=== PATIENT | male | born 1995 | race Two or more races ===

== ENCOUNTER 2021-02-21 12:54 | Emergency (ER) | payer SELFPAY ==
[2021-02-21 13:15] VITALS: BP 149/79; PULSE 94; RESP 16; TEMP 36.6; O2SAT 100; BMI 36.6
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
[2021-02-21 14:36] LABS: MANUAL DIFF FLAG NO
[2021-02-21 14:39] LABS: Basophils Percent Auto 0.4 % (0-2); Eosinophils Absolute Auto 0.1 X10*3/uL (0.0-0.4); Eosinophils Percent Auto 1.2 % (0-4); Hematocrit 43.3 % (42.0-52.0); Hemoglobin 14.5 g/dl (14.0-18.0); Imm Gran Abs Auto 0.02 X10*3/uL (0.00-0.03); Imm Gran Pct Auto 0.3 % (0.0-0.4); Lymphocytes Percent Auto 29.1 % (20-40); Mean Corpuscular HGB Conc 33.5 g/dl (31.0-36.0); Mean Corpuscular Hemoglobin 28.2 pg (27.0-33.0); Mean Corpuscular Volume 84.1 fL (80.0-98.0); Mean Platelet Volume 9.6 fL (9.4-12.4); Monocytes Absolute Auto 0.6 X10*3/uL (0.1-1.2); Monocytes Percent Auto 9.3 % (2-11); Neutrophils Absolute Auto 4.1 x10*3/uL (2.0-8.3); Neutrophils Percent Auto 59.7 % (45-73); Platelet Count 296 X10*3/uL (160-400); Red Blood Count 5.15 X10*6/uL (4.60-5.80); Red Cell Distribution Width 13.3 % (11.0-16.0); White Blood Count 6.9 X10*3/uL (4.8-10.8)
[2021-02-21 14:54] LABS: Ethanol < 10 mg/dL
[2021-02-21 14:56] LABS: Anion Gap 10 (12-20); Blood Urea Nitrogen 12 mg/dL (9-16); Calcium 9.7 mg/dL (8.4-10.2); Carbon Dioxide 30 mmol/L (22-29); Chloride 105 mmol/L (96-108); Creatinine Clr Calc Pharmacy 105.7; Estimated Glomerular Filt Rate > 60; Glucose Random 131 mg/dL (60-115); Potassium 3.7 mmol/L (3.3-5.1); Sodium 141 mmol/L (135-145)
[2021-02-21 15:13] LABS: COVID-19 Test Negative (Negative); IDNOW Serial# 55D5AD1C
--- NOTE | 2021-02-21 15:14 | PC.NURSE ---
PT reports that he does not take medications, he reports that he stopped taking them several months ago and uses CBT as treatment instead of medications.
[2021-02-21 17:40] VITALS: BP 163/93; PULSE 83; RESP 15; TEMP 36.6; O2SAT 100
[2021-02-22 00:10] VITALS: RESP 20
[2021-02-22] MEDS: LORazepam 2 MG/ML VIAL IM (00:10)
[2021-02-22] MEDS: Haloperidol Lactate 5 MG/ML VIAL IM (00:10)
[2021-02-22] MEDS: diphenhydrAMINE HCL 50 MG/ML VIAL IM (00:10)
[2021-02-22 00:24] VITALS: BP 133/68; PULSE 76; RESP 17; TEMP 36.7; O2SAT 99
[2021-02-22 00:25] VITALS: RESP 18
[2021-02-22 00:40] VITALS: RESP 18
[2021-02-22 00:55] VITALS: RESP 18
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
[2021-02-22 01:10] VITALS: RESP 19
--- NOTE | 2021-02-22 06:08 | PC.NURSE ---
Patient is status post restraint, patient slept through the night, no distress observed/reported, patient is currently not on any medication, patient thought content is paranoid and delusional, behavior labile at time can aggressive, VSS, patient was seen by Randy, disposition is section 12 inpatient bed search, will continue to monitor.
--- NOTE | 2021-02-22 07:20 | PC.NURSE ---
patient appears to remain at rest at present respirations are even and unlabored, patient appears in no distress.
--- NOTE | 2021-02-22 18:32 | PC.NURSE ---
Patient aware of plan of care to utilize partial hospitalization. Verbalized understanding of discharge instruction discharged to waiting room to await ride
== END 2021-02-22 18:34 | disposition home or self-care (01) ==
PROVIDERS: Physician Assistant; Emergency Provider Emergency Medicine
DX: F30.9 Manic episode, unspecified (principal); Z20.822 Contact with and (suspected) exposure to COVID-19; F16.10 Hallucinogen abuse, uncomplicated; F12.10 Cannabis abuse, uncomplicated
CPT/HCPCS: 80048; 82077; 85025; 87635; 96372; 99285; J1200; J2060

== ENCOUNTER 2022-05-15 09:37 | Inpatient (IN) | payer BC, SELFPAY ==
[2022-05-15 09:52] VITALS: BP 186/89; PULSE 72; RESP 18; TEMP 37; O2SAT 98; BMI 29.6
[2022-05-15 10:22] LABS: MANUAL DIFF FLAG NO
[2022-05-15 10:27] LABS: Basophils Percent Auto 0.4 % (0-2); Eosinophils Percent Auto 0.2 % (0-4); Hemoglobin 14.7 g/dl (14.0-18.0); Imm Gran Abs Auto 0.02 X10*3/uL (0.00-0.03); Imm Gran Pct Auto 0.2 % (0.0-0.4); Lymphocytes Absolute Auto 2.1 X10*3/uL (1.2-4.9); Lymphocytes Percent Auto 25.4 % (20-40); Mean Corpuscular HGB Conc 34.2 g/dl (31.0-36.0); Mean Corpuscular Hemoglobin 27.8 pg (27.0-33.0); Mean Corpuscular Volume 81.4 fL (80.0-98.0); Monocytes Absolute Auto 0.5 X10*3/uL (0.1-1.2); Monocytes Percent Auto 6.5 % (2-11); Neutrophils Absolute Auto 5.6 x10*3/uL (2.0-8.3); Neutrophils Percent Auto 67.3 % (45-73); Platelet Count 309 X10*3/uL (160-400); Red Blood Count 5.28 X10*6/uL (4.60-5.80); Red Cell Distribution Width 13.8 % (11.0-16.0); White Blood Count 8.3 X10*3/uL (4.8-10.8)
--- NOTE | 2022-05-15 10:32 | PC.NURSE ---
Pt in to the pod from triage, changed over with Rishi WICK and security, belongings inventoried and locked up in locker #3. Labs ordered, drawn, and sent to lab, results pending. Pt presents with anxious affect, appears to be thought blocked. Endorsing paranoid thoughts pt feels as though he is in danger and that people are going to attack . Pt denies AH/VH/SI/HI, poor sleep. Lives at home with his parents. Per mom pt was psychiatrically hospitalized in Feb in [place] and d/c with meds. Mom states pt felt as though he did not need the medications, and took himself off his meds to do some watchful waiting . Awaiting first contact with ED provider at this time.
[2022-05-15 10:43] LABS: Ethanol < 10 mg/dL
[2022-05-15 10:49] LABS: COVID-19 Test Negative (Negative); IDNOW Serial# 08D9AD1C
[2022-05-15 10:52] LABS: Alanine Aminotransferase 62 U/L (0-40); Albumin Level 4.8 g/dL (3.5-5.0); Alkaline Phosphatase 62 U/L (39-117); Anion Gap 19 (12-20); Aspartate Amino Transferase 78 U/L (5-37); Bilirubin Total 1.3 mg/dL (0.0-1.0); Blood Urea Nitrogen 14 mg/dL (9-16); Calcium 9.5 mg/dL (8.4-10.2); Carbon Dioxide 21 mmol/L (22-29); Chloride 107 mmol/L (96-108); Creatinine Clr Calc Pharmacy 109.9; Estimated Glomerular Filt Rate > 60; Glucose Random 115 mg/dL (60-115); Potassium 4.1 mmol/L (3.3-5.1); Sodium 143 mmol/L (135-145); Total Protein 7.8 g/dL (6.5-8.0)
[2022-05-15 10:56] LABS: Acetaminophen LAB < 17 mcg/mL (<30); Salicylate < 5.0 mg/dL (15-30)
--- NOTE | 2022-05-15 13:31 | ED.PSYCH ---
HPI - Psych General Chief Complaint: Psychiatric Symptoms Stated Complaint: crisis Time Seen by Provider: 05/15/22 13:22 Source: patient History of Present Illness HPI Narrative: THIS IS A 26 YEARS OLD MALE WITH HISTORY OF BIPOLAR 1 DISORDER PRESENTED TO THE EMERGENCY DEPARTMENT BECAUSE THE COMPENSATING PARANOIDAL DELUSION. complaint: hallucinations Onset (ago): week(s) (2) Duration: constant History of same: Yes Relieving factors: none Exacerbating factors: none Associated psychiatric symptoms: none Related Data Allergies Allergy/AdvReac Type Severity Reaction Status Date / Time Unable to Assess Allergy Unverified 02/21/21 13:21 Review of Systems Constitutional: Constitutional: Reports no additional constitutional complaints Cardiovascular: Cardiovascular: Reports no additional cardiovascular complaints Respiratory: Respiratory: Reports no additional respiratory complaints Musculoskeletal: Musculoskeletal: Reports no additional musculoskeletal complaints [facility] Past Medical History Attestation statement: The following information was validated with the patient. [facility] Narrative: BIPOLAR 1 DISORDER HISTORY OF PSYCH HOSPITALIZATION Social History Social History Alcohol intake: former Patient Tobacco Use Status: Tobacco use Unknown Substance Use Type: Hallucinogens and Marijuana Advance Directives: No Advance Directives Information Provided: No Physical Exam Vital Signs: Vital Signs: Last Vital Signs Temp 98.6 F 05/15/22 09:52 Pulse 72 05/15/22 09:52 Resp 18 05/15/22 09:52 BP 186/89 H 05/15/22 09:52 Pulse Ox 98 05/15/22 09:52 O2 Del Method Room Air 05/15/22 09:52 BMI result Body Mass Index 29.6 Const: General: cooperative Nutritional Appearance: average body habitus Orientation/consciousness: patient oriented x3 HEENT: Head: Yes normal to inspection General nose exam: Normal external nose present Face and sinus: Yes normal facial exam Neck: Neck: Yes normal visual inspection Resp: Effort & Inspection: normal respiratory effort Cardio: Rate: regular rate GI: Inspection: Yes normal to inspection Skin: General skin exam: no rashes or lesions noted Rashes: no rashes Neuro: General: patient oriented x3 and CN's II-XI intact bilaterally Course Reevaluation(s) Reevaluation #1: bed search continue pt is inpatient level of care pt will be signed out to Dr Claire Time: 15:46 Medical Decision Making Medical Decision Making MDM Narrative: PATIENT PRESENTED WITH DECOMPENSATION OF BIPOLAR 1 DISORDER ANTICIPATE ADMISSION Differential Diagnosis Differential Diagnoses: The differential diagnosis associated with the presentation includes PSYCHOSIS/DEPRESSION/ANXIETY Lab Data [facility] Lab Attestation statement: I reviewed the patient's lab results. 05/15/22 10:17 05/15/22 10:17 Labs: Lab Results 05/15/22 05/15/22 05/15/22 Range/Units 10:17 10:17 10:17 WBC 8.3 (4.8-10.8) X10*3/uL RBC 5.28 (4.60-5.80) X10*6/uL Hgb 14.7 (14.0-18.0) g/dl Hct 43.0 (42.0-52.0) % MCV 81.4 (80.0-98.0) fL MCH 27.8 (27.0-33.0) pg MCHC 34.2 (31.0-36.0) g/dl RDW 13.8 (11.0-16.0) % Plt Count 309 (160-400) X10*3/uL MPV 10.0 (9.4-12.4) fL Immature Gran % (Auto) 0.2 (0.0-0.4) % Neut % (Auto) 67.3 (45-73) % Lymph % (Auto) 25.4 (20-40) % [place] % (Auto) 6.5 (2-11) % Eos % (Auto) 0.2 (0-4) % Baso % (Auto) 0.4 (0-2) % Lymph # (Auto) 2.1 (1.2-4.9) X10*3/uL [place] # (Auto) 0.5 (0.1-1.2) X10*3/uL Eos # (Auto) 0.0 (0.0-0.4) X10*3/uL Baso # (Auto) 0.0 (0.0-0.2) X10*3/uL Abs Immat Gran (auto) 0.02 (0.00-0.03) X10*3/uL Absolute Neuts (auto) 5.6 (2.0-8.3) x10*3/uL Absolute Nucleated RBC 0.000 (0.0-0.012) X10*3/uL Nucleated RBC % (auto) 0.0 (0.0-0.2) /100WBC Sodium 143 (135-145) mmol/L Potassium 4.1 (3.3-5.1) mmol/L Chloride 107 (96-108) mmol/L Carbon Dioxide 21 L (22-29) mmol/L Anion Gap 19 (12-20) BUN 14 (9-16) mg/dL Creatinine 1.11 (0.5-1.4) mg/dL Estim Creat Clear Calc 109.9 Estimated GFR > 60 Random Glucose 115 (60-115) mg/dL Calcium 9.5 (8.4-10.2) mg/dL Total Bilirubin 1.3 H (0.0-1.0) mg/dL AST 78 H (5-37) U/L ALT 62 H (0-40) U/L Alkaline Phosphatase 62 (39-117) U/L Total Protein 7.8 (6.5-8.0) g/dL Albumin 4.8 (3.5-5.0) g/dL Urine Color Urine Appearance Urine pH (5.0-9.0) Ur Specific [place] (1.005-1.025) Urine Protein (Neg-Trace) mg/dL Urine Glucose (UA) (Negative) mg/dL Urine Ketones (Negative) mg/dL Urine Blood (Negative) Urine Nitrite (Negative) Ur Leukocyte Esterase (Negative) Urine RBC (0-2) /HPF Urine WBC (0-5) /HPF Ur Squamous Epith Cells (0-2) /HPF Urine Bacteria (None Seen) Hyaline Casts (0-2) /LPF Salicylates < 5.0 L (15-30) mg/dL Urine Opiates Screen (Not Detect) Urine Fentanyl Screen (Not Detect) Acetaminophen < 17 (<30) mcg/mL Ur Barbiturates Screen (Not Detect) Ur Phencyclidine Scrn (Not Detect) Ur Amphetamines Screen (Not Detect) U Benzodiazepines Scrn (Not Detect) Urine Cocaine Screen (Not Detect) U Marijuana (THC) Screen (Not Detect) Ethyl Alcohol mg/dL COVID-19 (JUSTIN) Negative (Negative) COVID-19 Clin Com See Note 05/15/22 05/15/22 05/15/22 Range/Units 10:17 14:41 14:41 WBC (4.8-10.8) X10*3/uL RBC (4.60-5.80) X10*6/uL Hgb (14.0-18.0) g/dl Hct (42.0-52.0) % MCV (80.0-98.0) fL MCH (27.0-33.0) pg MCHC (31.0-36.0) g/dl RDW (11.0-16.0) % Plt Count (160-400) X10*3/uL MPV (9.4-12.4) fL Immature Gran % (Auto) (0.0-0.4) % Neut % (Auto) (45-73) % Lymph % (Auto) (20-40) % [place] % (Auto) (2-11) % Eos % (Auto) (0-4) % Baso % (Auto) (0-2) % Lymph # (Auto) (1.2-4.9) X10*3/uL [place] # (Auto) (0.1-1.2) X10*3/uL Eos # (Auto) (0.0-0.4) X10*3/uL Baso # (Auto) (0.0-0.2) X10*3/uL Abs Immat Gran (auto) (0.00-0.03) X10*3/uL Absolute Neuts (auto) (2.0-8.3) x10*3/uL Absolute Nucleated RBC (0.0-0.012) X10*3/uL Nucleated RBC % (auto) (0.0-0.2) /100WBC Sodium (135-145) mmol/L Potassium (3.3-5.1) mmol/L Chloride (96-108) mmol/L Carbon Dioxide (22-29) mmol/L Anion Gap (12-20) BUN (9-16) mg/dL Creatinine (0.5-1.4) mg/dL Estim Creat Clear Calc Estimated GFR Random Glucose (60-115) mg/dL Calcium (8.4-10.2) mg/dL Total Bilirubin (0.0-1.0) mg/dL AST (5-37) U/L ALT (0-40) U/L Alkaline Phosphatase (39-117) U/L Total Protein (6.5-8.0) g/dL Albumin (3.5-5.0) g/dL Urine Color Dark Yellow Urine Appearance Cloudy Urine pH 6.0 (5.0-9.0) Ur Specific [place] >= 1.030 H (1.005-1.025) Urine Protein 100 (2+) H (Neg-Trace) mg/dL Urine Glucose (UA) Negative (Negative) mg/dL Urine Ketones 15 (Negative) mg/dL Urine Blood Negative (Negative) Urine Nitrite Negative (Negative) Ur Leukocyte Esterase Negative (Negative) Urine RBC 0-2 (0-2) /HPF Urine WBC 0-5 (0-5) /HPF Ur Squamous Epith Cells 0-2 (0-2) /HPF Urine Bacteria None Seen (None Seen) Hyaline Casts 3-5 (0-2) /LPF Salicylates (15-30) mg/dL Urine Opiates Screen Not Detected (Not Detect) Urine Fentanyl Screen Not Detected (Not Detect) Acetaminophen (<30) mcg/mL Ur Barbiturates Screen Not Detected (Not Detect) Ur Phencyclidine Scrn Not Detected (Not Detect) Ur Amphetamines Screen Not Detected (Not Detect) U Benzodiazepines Scrn Not Detected (Not Detect) Urine Cocaine Screen Not Detected (Not Detect) U Marijuana (THC) Screen POSITIVE H (Not Detect) Ethyl Alcohol < 10 mg/dL COVID-19 (JUSTIN) (Negative) COVID-19 Clin Com Discharge Plan Discharge Clinical Impression: Bipolar disorder Patient Disposition: Still a Patient
[2022-05-15 14:56] LABS: Appearance Urine Cloudy; Color Urine Dark Yellow; Glucose Urine UA Negative (Negative); Leukocyte Esterase Urine Negative (Negative); Nitrite Urine Negative (Negative); Specific Gravity - Urine >= 1.030 (1.005-1.025); UMIC TRIGGER UACC YES; Urine Blood Negative (Negative); Urine Ketones 15 mg/dL (Negative); Urine Protein 100 (2+) mg/dL (Neg-Trace)
[2022-05-15 15:00] LABS: Amphetamine Screen Urine Not Detected (Not Detect); Barbiturates, Urine Not Detected (Not Detect); Benzodiazepines Screen Urine Not Detected (Not Detect); Cannabinoid Screen Urine POSITIVE (Not Detect); Cocaine Screen Urine Not Detected (Not Detect); Fentanyl, urine Not Detected (Not Detect); Opiate Screen Urine Not Detected (Not Detect); Phencyclidine Screen Urine Not Detected (Not Detect)
[2022-05-15 15:02] LABS: Bacteria Urine None Seen (None Seen); RBC Urine 0-2 /HPF (0-2); Squamous Epithelial Cell Urine 0-2 /HPF (0-2); WBC Urine 0-5 /HPF (0-5)
[2022-05-15 16:45] VITALS: BP 130/92; PULSE 67; RESP 18; TEMP 36.7; O2SAT 96
--- NOTE | 2022-05-15 19:35 | PHA.MEDREC ---
Pharmacy Consult ? Medication Reconciliation Pharmacy has completed the medication reconciliation. Reviewed med rec done by nursing
--- NOTE | 2022-05-15 22:19 | PC.ADMIT ---
Addendum entered by Yoly Robles RN 05/15/22 22:37: PT was changed to 5 minute safety checks due intrusiveness, going into other patients room, constantly being redirected. 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 Legal status: conditional voluntary. Pt was placed on 15 minute safety checks. PT self presented with their mother after having increased paranoid delusions that terrorists are trying to hurt him and fearing that people were hearing things he said. PT refused to participate in the admission process and quickly exited the treatment room, not even allowing vital signs to be taken. Per the assessment, pt quit his job approx 2 weeks ago and got terminated from a new job and then quickly decompensated. Mother reported pt has had similar presentations with hx of grandiose thoughts that they can cause the world to end. Per report, pt took a ton of acid in 2020 and moved to [place] and became homeless. On the way home, pt was receiving messages to go through restricted door in the airport. Pt was sectioned to [facility] in [place] for approx 4 weeks. Other hospitalizations include [facility] in 2019 and [facility] Feb 2021. PT's mother reported pt stopped taking medications in September of 2021 and his doctor has been watching and waiting for this decompensation. TOX screen + for marijuana, COVID negative. PT resting in room at this time, appears to be in no apparent distress.
[2022-05-16 08:38] VITALS: BP 140/98; PULSE 108; RESP 20; TEMP 36.2; O2SAT 96
[2022-05-16 08:39] LABS: Alanine Aminotransferase 78 U/L (0-40); Albumin Level 5.2 g/dL (3.5-5.0); Alkaline Phosphatase 69 U/L (39-117); Anion Gap 18 (12-20); Aspartate Amino Transferase 110 U/L (5-37); Bilirubin Total 1.4 mg/dL (0.0-1.0); Blood Urea Nitrogen 13 mg/dL (9-16); Calcium 10.2 mg/dL (8.4-10.2); Carbon Dioxide 25 mmol/L (22-29); Chloride 103 mmol/L (96-108); Cholesterol 219 mg/dL; Creatinine Clr Calc Pharmacy 91.7; Estimated Glomerular Filt Rate > 60; Glucose Fasting 118 mg/dL (60-99); HDL Cholesterol 31 mg/dL; LDL Cholesterol Calculated 167 mg/dl; Potassium 4.2 mmol/L (3.3-5.1); Sodium 142 mmol/L (135-145); Total Protein 8.4 g/dL (6.5-8.0); Triglycerides 106 mg/dL
[2022-05-16] MEDS: QUEtiapine Fumarate 300 MG TABLET PO (12:08)
[2022-05-16 16:27] VITALS: BP 119/81; PULSE 109; RESP 20; TEMP 36.3; O2SAT 97
--- NOTE | 2022-05-16 16:31 | HO.PSYADMNOT ---
HPI Date of Service: 05/16/22 Chief Complaint: Psychosis Sources of Information: patient interviewed, chart reviewed and crisis/core team assessment reviewed HPI Subjective Notes: Falcon Warning, Conditional Voluntary and Section 12B Narrative: Patient is a 26-year-old, on Section 12 b, (male at , non-binary person they/them pronouns) with history of bipolar disorder who presents in the midst of manic episode in face of non medication adherence. Patient was relatively stable for the past year even though not taking medications, holding down a job; about 2 weeks ago he quit his job showing signs of purging manic episode. Patient is now very disorganized, making odd movements in the milieu, intrusive, whispering to science writer, to himself, talking out loud to himself and answering questions posed by . Patient has limited ability to participate in interview. He asked for piece of paper and wrote that he is the Buddah and a witch... He refers to several pops star singers and his interaction with them... Patient said something about the popular book/movie ideasoft games and asked if the psychiatric unit was an arena. Rest of history gleaned from care team notes and chart Patient brought to ED by his mother who reports he has had increased paranoid delusions saying that terrorists are trying to hurt him and afraid of people; complains of auditory hallucinations and talking about being a participant in the [employer]. Past Psychiatric History: 2019 First treated for psychotic/manic symptoms 2020 manic episode January: abused psychedelics drugs and moved to [place] where he was psychiatrically admitted; returned to [place] and again psychiatrically admitted February 2021 Has outpatient psychiatrist however patient has not taking any medications for about a year, relatively stable, holding down a job until a couple weeks ago. -reference to Seroquel having been helpful Medical Evaluation Reviewed: Yes [facility], [facility] Family History: Unknown Adopted at 7-month-old (from [place]?) Social History: Adopted at 7-month-old; male at , non-binary person they/them pronouns Substance History: Hallucinogenic stop; cannabis Trauma History: Bullied Diagnostics Vital Signs (24Hr): Vital Signs - 24 hr 05/15/22 16:45 05/16/22 08:38 05/16/22 16:27 Temperature 98.0 F 97.1 F 97.4 F Pulse Rate 67 108 H 109 H Respiratory Rate 18 20 20 Blood Pressure 130/92 H 140/98 H 119/81 Pulse Oximetry 96 96 97 Oxygen Delivery Method Room Air Room Air Room Air BMI result Body Mass Index 29.6 Labs 05/15/22 10:17 05/16/22 08:00 Labs: Laboratory Results - last 48 hr 05/15/22 05/15/22 05/15/22 10:17 10:17 10:17 WBC 8.3 RBC 5.28 Hgb 14.7 Hct 43.0 MCV 81.4 MCH 27.8 MCHC 34.2 RDW 13.8 Plt Count 309 MPV 10.0 Immature Gran % (Auto) 0.2 Neut % (Auto) 67.3 Lymph % (Auto) 25.4 [place] % (Auto) 6.5 Eos % (Auto) 0.2 Baso % (Auto) 0.4 Lymph # (Auto) 2.1 [place] # (Auto) 0.5 Eos # (Auto) 0.0 Baso # (Auto) 0.0 Abs Immat Gran (auto) 0.02 Absolute Neuts (auto) 5.6 Absolute Nucleated RBC 0.000 Nucleated RBC % (auto) 0.0 Sodium 143 Potassium 4.1 Chloride 107 Carbon Dioxide 21 L Anion Gap 19 BUN 14 Creatinine 1.11 Estim Creat Clear Calc 109.9 Estimated GFR > 60 Random Glucose 115 Fasting Glucose Calcium 9.5 Total Bilirubin 1.3 H AST 78 H ALT 62 H Alkaline Phosphatase 62 Total Protein 7.8 Albumin 4.8 Triglycerides Cholesterol LDL Cholesterol, Calc HDL Cholesterol Urine Color Urine Appearance Urine pH Ur Specific [place] Urine Protein Urine Glucose (UA) Urine Ketones Urine Blood Urine Nitrite Ur Leukocyte Esterase Urine RBC Urine WBC Ur Squamous Epith Cells Urine Bacteria Hyaline Casts Salicylates < 5.0 L Urine Opiates Screen Urine Fentanyl Screen Acetaminophen < 17 Ur Barbiturates Screen Ur Phencyclidine Scrn Ur Amphetamines Screen U Benzodiazepines Scrn Urine Cocaine Screen U Marijuana (THC) Screen Ethyl Alcohol COVID-19 (JUSTIN) Negative COVID-19 Clin Com See Note 05/15/22 05/15/22 05/15/22 10:17 14:41 14:41 WBC RBC Hgb Hct MCV MCH MCHC RDW Plt Count MPV Immature Gran % (Auto) Neut % (Auto) Lymph % (Auto) [place] % (Auto) Eos % (Auto) Baso % (Auto) Lymph # (Auto) [place] # (Auto) Eos # (Auto) Baso # (Auto) Abs Immat Gran (auto) Absolute Neuts (auto) Absolute Nucleated RBC Nucleated RBC % (auto) Sodium Potassium Chloride Carbon Dioxide Anion Gap BUN Creatinine Estim Creat Clear Calc Estimated GFR Random Glucose Fasting Glucose Calcium Total Bilirubin AST ALT Alkaline Phosphatase Total Protein Albumin Triglycerides Cholesterol LDL Cholesterol, Calc HDL Cholesterol Urine Color Dark Yellow Urine Appearance Cloudy Urine pH 6.0 Ur Specific [place] >= 1.030 H Urine Protein 100 (2+) H Urine Glucose (UA) Negative Urine Ketones 15 Urine Blood Negative Urine Nitrite Negative Ur Leukocyte Esterase Negative Urine RBC 0-2 Urine WBC 0-5 Ur Squamous Epith Cells 0-2 Urine Bacteria None Seen Hyaline Casts 3-5 Salicylates Urine Opiates Screen Not Detected Urine Fentanyl Screen Not Detected Acetaminophen Ur Barbiturates Screen Not Detected Ur Phencyclidine Scrn Not Detected Ur Amphetamines Screen Not Detected U Benzodiazepines Scrn Not Detected Urine Cocaine Screen Not Detected U Marijuana (THC) Screen POSITIVE H Ethyl Alcohol < 10 COVID-19 (JUSTIN) COVID-19 Clin Com 05/16/22 08:00 WBC RBC Hgb Hct MCV MCH MCHC RDW Plt Count MPV Immature Gran % (Auto) Neut % (Auto) Lymph % (Auto) [place] % (Auto) Eos % (Auto) Baso % (Auto) Lymph # (Auto) [place] # (Auto) Eos # (Auto) Baso # (Auto) Abs Immat Gran (auto) Absolute Neuts (auto) Absolute Nucleated RBC Nucleated RBC % (auto) Sodium 142 Potassium 4.2 Chloride 103 Carbon Dioxide 25 Anion Gap 18 BUN 13 Creatinine 1.33 Estim Creat Clear Calc 91.7 Estimated GFR > 60 Random Glucose Fasting Glucose 118 H Calcium 10.2 D Total Bilirubin 1.4 H AST 110 H ALT 78 H Alkaline Phosphatase 69 Total Protein 8.4 H Albumin 5.2 H Triglycerides 106 Cholesterol 219 LDL Cholesterol, Calc 167 HDL Cholesterol 31 Urine Color Urine Appearance Urine pH Ur Specific [place] Urine Protein Urine Glucose (UA) Urine Ketones Urine Blood Urine Nitrite Ur Leukocyte Esterase Urine RBC Urine WBC Ur Squamous Epith Cells Urine Bacteria Hyaline Casts Salicylates Urine Opiates Screen Urine Fentanyl Screen Acetaminophen Ur Barbiturates Screen Ur Phencyclidine Scrn Ur Amphetamines Screen U Benzodiazepines Scrn Urine Cocaine Screen U Marijuana (THC) Screen Ethyl Alcohol COVID-19 (JUSTIN) COVID-19 Clin Com Meds/Allergies Meds Home Medications Medication Instructions Recorded Confirmed Type levothyroxine 25 mcg tablet 25 mcg PO QAM 05/15/22 05/15/22 History montelukast 10 mg tablet 10 mg PO DAILY 05/15/22 05/15/22 History Allergies Allergies Allergy/AdvReac Type Severity Reaction Status Date / Time No Known Allergies Allergy Verified 05/15/22 19:15 Mental Status Exam Mental Status Exam Narrative: Pt is alert and oriented; behavior is manic, disorganized making odd body and hand movements,, guarded. Patient is not in distress; dressed in hospital attire, with Nilsa markings on hands/arms, rings in lip, adequate hygiene; mood is described as expansive and affect is expansive; eye contact either staring or avoidant; speech is odd prosody, slightly rapid rate mostly talking to himself; psychomotor agitation present; thought process can be briefly goal oriented but quickly becomes disorganized; Thought content is on delusional, paranoid ideations; some grandiosity; denies any SI/HI. Patient is significantly internally preoccupied. Patients insight and judgment impaired Assessment & Plan Assessment & Plan (1) Bipolar disorder: Status: Acute Code(s): F31.9 - Bipolar disorder, unspecified Plan Patient is a 26-year-old, on Section 12 b, (male at , non-binary person they/them pronouns) with history of bipolar disorder who presents in the midst of manic episode in face of non medication adherence. Patient was relatively stable for the past year even though not taking medications, holding down a job; about 2 weeks ago he quit his job showing signs of purging manic episode. Patient is now very disorganized, making odd movements in the milieu, intrusive, whispering to science writer, to himself, talking out loud to himself and answering questions posed by . Patient has limited ability to participate in interview. He asked for piece of paper and wrote that he is the Buddah and a witch... He refers to several pops star singers and his interaction with them... Patient said something about the popular book/movie [employer] games and asked if the psychiatric unit was an arena. Rest of history gleaned from care team notes and chart. Patient brought to ED by his mother who reports he has had increased paranoid delusions saying that terrorists are trying to hurt him and afraid of people; complains of auditory hallucinations and talking about being a participant in the [employer]. -patient signed CV however CV was rejected as patient does not seem to understand the content of his CV, does not think he needs or wants treatment. -patient is floridly manic, with psychotic symptoms including paranoid and grandiose delusions and auditory hallucinations. Patient initially agreed to take Seroquel but then tried to spit it out and then tried to make himself vomit Plan: Section 12B (CV rejected) Q 5 minute checks; may advance to one-to-one if needed Seroquel 300 mg b.i.d. LFTs mildly elevated, not sure why; patient refuses Depakote anyway but have held off from starting it in hopes that patient may take Seroquel and that it will be effective -repeat liver panel Obtain collateral Patient educated on: diagnosis and medication risk/benefits Informed Consent: does not understand Reason for continued inpatient stay Substantial Risk for: inability to function Statement Statement: I have reviewed the history and physical and performed a pertinent examination on my patient. No changes have occurred unless specified. If the History and Physical was not performed prior to admission, the Hospitalist's service will be consulted for completing the admission physical. Time Spent With Patient Time: Total time managing care of this patient today ____ minutes.
[2022-05-16] MEDS: OLANZapine 10 MG VIAL IM (22:48)
[2022-05-16] MEDS: LORazepam 2 MG/ML VIAL IM (22:49)
--- NOTE | 2022-05-16 22:52 | PM.EVENT ---
Event Note Date of Service: 05/16/22 Event Note: pt became agitated, destructive, could not be redirected required physical and chemical restraint Time Spent With Patient Time: Total time managing care of this patient today ____ minutes.
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
[2022-05-17 08:58] VITALS: BP 133/87; PULSE 108; RESP 18
--- NOTE | 2022-05-17 09:51 | PC.NURSE ---
Attempt to medicate pt with scheduled seroquel by this RN. Pt appears agitated, argumentative when this nurse attempted to engage them in a conversation. Pt declining to take medication stating I don't take medications when reminded that they took their med yesterday I didn't know it was a medication . Pt appears hostile, intense eye contact. Continues to be a 1:1.
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
[2022-05-17 18:00] VITALS: RESP 16
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
[2022-05-18] MEDS: OLANZapine 10 MG VIAL IM ×2 (12:23→17:36)
[2022-05-18] MEDS: LORazepam 2 MG/ML VIAL 1 MG IM (12:23)
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
[2022-05-18 16:28] VITALS: RESP 16
[2022-05-18] MEDS: LORazepam 2 MG/ML VIAL IM (17:35)
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
--- NOTE | 2022-05-19 08:41 | PC.NURSE ---
pt refused am vitals or medications
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
[2022-05-19 18:00] VITALS: RESP 16
--- NOTE | 2022-05-19 20:08 | PC.NURSE ---
PT resistive to care, refused vital signs and evening medication. When offered meds pt stated I will only take acid .
[2022-05-20] MEDS: QUEtiapine Fumarate 50 MG TABLET PO ×2 (00:10→10:28)
[2022-05-20] MEDS: Levothyroxine Sodium 25 MCG TABLET PO (04:58)
[2022-05-20] MEDS: OLANZapine ODT 10 MG TAB.RAPDIS TRANSLINGU (10:27)
[2022-05-20] MEDS: Montelukast Sodium 10 MG TABLET PO (10:28)
[2022-05-20 11:26] LABS: Alanine Aminotransferase 80 U/L (0-40); Albumin Level 4.7 g/dL (3.5-5.0); Alkaline Phosphatase 69 U/L (39-117); Aspartate Amino Transferase 93 U/L (5-37); Bilirubin Direct 0.4 mg/dL (0.0-0.5); Bilirubin Total 1.6 mg/dL (0.0-1.0); Total Protein 7.5 g/dL (6.5-8.0)
--- NOTE | 2022-05-20 14:29 | PC.NURSE ---
pt denies being a current smoker and does not need or want NRT
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
[2022-05-21] MEDS: OLANZapine ODT 10 MG TAB.RAPDIS TRANSLINGU ×3 (08:17→20:48)
[2022-05-21] MEDS: Montelukast Sodium 10 MG TABLET PO (08:17)
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
[2022-05-21 11:54] VITALS: BP 121/58; PULSE 97; RESP 16; TEMP 36.3; O2SAT 97
[2022-05-21] MEDS: hydrOXYzine HCL 25 MG TABLET PO (13:52)
[2022-05-21 18:00] VITALS: PULSE 74; TEMP 36.1
[2022-05-21] MEDS: Divalproex Sodium ER 500 MG TAB.ER.24H PO (20:48)
[2022-05-22 07:00] VITALS: BMI 33.1
[2022-05-22] MEDS: OLANZapine ODT 10 MG TAB.RAPDIS TRANSLINGU ×3 (08:26→22:14)
[2022-05-22] MEDS: Montelukast Sodium 10 MG TABLET PO (08:26)
[2022-05-22] MEDS: Levothyroxine Sodium 25 MCG TABLET PO (08:27)
[2022-05-22 08:30] VITALS: BP 161/101; PULSE 85; RESP 18; TEMP 36.1; O2SAT 98
[2022-05-22 16:42] VITALS: BP 133/72; PULSE 90
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
[2022-05-22] MEDS: Divalproex Sodium ER 500 MG TAB.ER.24H PO (22:14)
[2022-05-23] MEDS: QUEtiapine Fumarate 50 MG TABLET PO (06:34)
[2022-05-23] MEDS: Levothyroxine Sodium 25 MCG TABLET PO (06:34)
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
[2022-05-23] MEDS: Montelukast Sodium 10 MG TABLET PO (08:45)
[2022-05-23] MEDS: OLANZapine ODT 10 MG TAB.RAPDIS TRANSLINGU ×2 (08:45→14:24)
[2022-05-23 08:56] LABS: Ammonia 20 umol/L (13-55)
[2022-05-23 09:12] LABS: Alanine Aminotransferase 69 U/L (0-40); Albumin Level 4.4 g/dL (3.5-5.0); Alkaline Phosphatase 59 U/L (39-117); Anion Gap 13 (12-20); Aspartate Amino Transferase 79 U/L (5-37); Bilirubin Direct 0.2 mg/dL (0.0-0.5); Bilirubin Total 0.8 mg/dL (0.0-1.0); Blood Urea Nitrogen 9 mg/dL (9-16); Calcium 9.6 mg/dL (8.4-10.2); Carbon Dioxide 29 mmol/L (22-29); Chloride 103 mmol/L (96-108); Creatinine Clr Calc Pharmacy 102.9; Estimated Glomerular Filt Rate > 60; Glucose Random 152 mg/dL (60-115); Potassium 4.3 mmol/L (3.3-5.1); Sodium 141 mmol/L (135-145)
[2022-05-23 18:00] VITALS: RESP 16
[2022-05-24 06:00] VITALS: BP 132/71; PULSE 81; RESP 16; TEMP 36.1; O2SAT 99
[2022-05-24] MEDS: OLANZapine ODT 10 MG TAB.RAPDIS TRANSLINGU ×3 (06:29→17:50)
[2022-05-24] MEDS: Montelukast Sodium 10 MG TABLET PO (08:15)
[2022-05-24] MEDS: Levothyroxine Sodium 25 MCG TABLET PO (08:16)
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
[2022-05-24 15:49] VITALS: BP 142/72; PULSE 91
[2022-05-24] MEDS: Divalproex Sodium ER 500 MG TAB.ER.24H 1000 MG PO (17:50)
[2022-05-24] MEDS: Ibuprofen 400 MG TABLET PO (20:16)
[2022-05-24] MEDS: QUEtiapine Fumarate 50 MG TABLET PO (20:18)
[2022-05-25] MEDS: hydrOXYzine HCL 25 MG TABLET PO ×2 (01:38→08:36)
[2022-05-25] MEDS: QUEtiapine Fumarate 50 MG TABLET PO ×2 (06:02→10:11)
[2022-05-25] MEDS: Levothyroxine Sodium 25 MCG TABLET PO (06:02)
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
[2022-05-25 08:31] VITALS: BP 106/56; PULSE 92; RESP 16; TEMP 37; O2SAT 96
[2022-05-25] MEDS: OLANZapine ODT 10 MG TAB.RAPDIS TRANSLINGU ×2 (08:36→17:35)
[2022-05-25] MEDS: Montelukast Sodium 10 MG TABLET PO (08:36)
[2022-05-25 16:11] VITALS: BP 127/78; PULSE 101
[2022-05-25] MEDS: Nicotine Polacrilex 2 MG GUM 4 MG BUCCAL (16:56)
[2022-05-25] MEDS: Divalproex Sodium ER 500 MG TAB.ER.24H 1000 MG PO (17:35)
[2022-05-26] MEDS: QUEtiapine Fumarate 50 MG TABLET PO ×2 (04:39→18:33)
[2022-05-26] MEDS: hydrOXYzine HCL 25 MG TABLET PO ×2 (04:39→11:20)
[2022-05-26] MEDS: Levothyroxine Sodium 25 MCG TABLET PO (04:40)
[2022-05-26] MEDS: Nicotine Polacrilex 2 MG GUM 4 MG BUCCAL ×2 (04:40→18:15)
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
[2022-05-26] MEDS: OLANZapine ODT 10 MG TAB.RAPDIS TRANSLINGU ×3 (08:22→18:33)
[2022-05-26] MEDS: Montelukast Sodium 10 MG TABLET PO (08:22)
[2022-05-26 08:29] VITALS: BP 116/79; PULSE 90; RESP 16; TEMP 36.1; O2SAT 99
[2022-05-26] MEDS: Throat Lozenge, Medicated LOZENGE 1 LOZENGE MUCOUS MEM ×2 (13:33→21:20)
[2022-05-26] MEDS: Divalproex Sodium ER 500 MG TAB.ER.24H 1000 MG PO (18:33)
[2022-05-26] MEDS: traZODone HCL 50 MG TABLET PO (21:20)
[2022-05-26] MEDS: Ibuprofen 400 MG TABLET PO (21:20)
[2022-05-27] MEDS: Throat Lozenge, Medicated LOZENGE 1 LOZENGE MUCOUS MEM ×2 (02:10→16:53)
[2022-05-27] MEDS: QUEtiapine Fumarate 50 MG TABLET PO (03:04)
[2022-05-27] MEDS: hydrOXYzine HCL 25 MG TABLET PO (03:04)
[2022-05-27] MEDS: OLANZapine ODT 10 MG TAB.RAPDIS TRANSLINGU (08:25)
[2022-05-27] MEDS: Levothyroxine Sodium 25 MCG TABLET PO (08:25)
[2022-05-27] MEDS: Montelukast Sodium 10 MG TABLET PO (08:26)
[2022-05-27 08:51] VITALS: BP 108/74; PULSE 94; RESP 14; TEMP 36.2; O2SAT 99
[2022-05-27] MEDS: Ibuprofen 400 MG TABLET PO (11:35)
[2022-05-27 12:03] LABS: Alanine Aminotransferase 63 U/L (0-40); Albumin Level 4.3 g/dL (3.5-5.0); Alkaline Phosphatase 56 U/L (39-117); Aspartate Amino Transferase 72 U/L (5-37); Bilirubin Direct 0.1 mg/dL (0.0-0.5); Bilirubin Total 0.5 mg/dL (0.0-1.0); Total Protein 6.8 g/dL (6.5-8.0)
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
[2022-05-27 12:38] LABS: Ammonia 46 umol/L (13-55)
[2022-05-27] MEDS: QUEtiapine Fumarate 200 MG TABLET PO ×2 (13:16→19:14)
[2022-05-27] MEDS: LORazepam 1 MG TABLET PO ×2 (14:38→19:14)
[2022-05-27 16:53] VITALS: BP 126/76; PULSE 68; RESP 16; TEMP 35.9; O2SAT 97
[2022-05-27] MEDS: Divalproex Sodium ER 500 MG TAB.ER.24H 1000 MG PO (19:14)
[2022-05-28] MEDS: Levothyroxine Sodium 25 MCG TABLET PO (05:22)
[2022-05-28] MEDS: Montelukast Sodium 10 MG TABLET PO (08:05)
[2022-05-28] MEDS: QUEtiapine Fumarate 200 MG TABLET PO ×3 (08:05→21:35)
[2022-05-28] MEDS: LORazepam 1 MG TABLET PO ×3 (08:05→21:35)
[2022-05-28] MEDS: Throat Lozenge, Medicated LOZENGE 1 LOZENGE MUCOUS MEM (13:38)
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
[2022-05-28 17:40] VITALS: BP 134/80; PULSE 85; TEMP 36.3
[2022-05-28] MEDS: Ibuprofen 400 MG TABLET PO (17:43)
[2022-05-28] MEDS: Divalproex Sodium ER 500 MG TAB.ER.24H 1000 MG PO (21:35)
[2022-05-29] MEDS: Throat Lozenge, Medicated LOZENGE 1 LOZENGE MUCOUS MEM (02:31)
[2022-05-29] MEDS: Levothyroxine Sodium 25 MCG TABLET PO (05:33)
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
[2022-05-29] MEDS: QUEtiapine Fumarate 200 MG TABLET PO (08:42)
[2022-05-29] MEDS: LORazepam 1 MG TABLET PO ×3 (08:42→18:31)
[2022-05-29] MEDS: Montelukast Sodium 10 MG TABLET PO (08:42)
[2022-05-29 09:09] VITALS: BP 129/75; PULSE 66; RESP 18; TEMP 36.1; O2SAT 100
[2022-05-29] MEDS: QUEtiapine Fumarate 300 MG TABLET 600 MG PO (18:31)
[2022-05-29] MEDS: Divalproex Sodium ER 500 MG TAB.ER.24H 1000 MG PO (18:32)
[2022-05-29] MEDS: QUEtiapine Fumarate 50 MG TABLET PO (20:03)
[2022-05-29] MEDS: Ibuprofen 400 MG TABLET PO (20:03)
[2022-05-30] MEDS: Levothyroxine Sodium 25 MCG TABLET PO (05:47)
[2022-05-30 06:00] VITALS: BP 106/53; PULSE 91; RESP 14; TEMP 37.1
[2022-05-30] MEDS: Montelukast Sodium 10 MG TABLET PO (07:56)
[2022-05-30] MEDS: LORazepam 1 MG TABLET PO ×3 (07:56→20:35)
[2022-05-30] MEDS: QUEtiapine Fumarate 200 MG TABLET PO (07:56)
[2022-05-30] MEDS: QUEtiapine Fumarate 50 MG TABLET PO (14:40)
[2022-05-30 18:00] VITALS: BP 122/84; PULSE 82; RESP 16; TEMP 36.6; O2SAT 98
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
[2022-05-30] MEDS: Divalproex Sodium ER 500 MG TAB.ER.24H 1000 MG PO (20:35)
[2022-05-30] MEDS: QUEtiapine Fumarate 300 MG TABLET 600 MG PO (20:35)
[2022-05-31] MEDS: Levothyroxine Sodium 25 MCG TABLET PO (06:28)
[2022-05-31] MEDS: QUEtiapine Fumarate 50 MG TABLET PO ×2 (06:32→17:36)
[2022-05-31] MEDS: LORazepam 1 MG TABLET PO ×3 (08:23→20:07)
[2022-05-31] MEDS: QUEtiapine Fumarate 200 MG TABLET PO (08:23)
[2022-05-31] MEDS: Montelukast Sodium 10 MG TABLET PO (08:23)
[2022-05-31 09:02] VITALS: BP 98/66; PULSE 88; RESP 16; TEMP 36.1; O2SAT 99
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
[2022-05-31] MEDS: Nicotine Polacrilex 2 MG GUM 4 MG BUCCAL (17:36)
[2022-05-31 18:00] VITALS: BP 111/72; PULSE 85; RESP 18; TEMP 35.9; O2SAT 98
[2022-05-31] MEDS: QUEtiapine Fumarate 300 MG TABLET 600 MG PO (20:07)
[2022-05-31] MEDS: Divalproex Sodium ER 500 MG TAB.ER.24H 1000 MG PO (20:07)
[2022-06-01] MEDS: Levothyroxine Sodium 25 MCG TABLET PO (05:30)
[2022-06-01] MEDS: QUEtiapine Fumarate 200 MG TABLET PO (09:04)
[2022-06-01] MEDS: LORazepam 1 MG TABLET PO ×2 (09:04→14:31)
[2022-06-01] MEDS: Montelukast Sodium 10 MG TABLET PO (09:04)
[2022-06-01 09:06] VITALS: BP 121/87; PULSE 81; RESP 16; TEMP 36.1; O2SAT 100
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
[2022-06-01 16:25] VITALS: BP 118/71; PULSE 93; TEMP 36; O2SAT 99
[2022-06-01] MEDS: Nicotine Polacrilex 2 MG GUM 4 MG BUCCAL (17:06)
[2022-06-01] MEDS: Divalproex Sodium ER 500 MG TAB.ER.24H 1000 MG PO (21:14)
[2022-06-01] MEDS: QUEtiapine Fumarate 300 MG TABLET 600 MG PO (21:15)
[2022-06-02 06:00] VITALS: BP 103/60; PULSE 89; RESP 14; TEMP 36.1; O2SAT 99
[2022-06-02] MEDS: Montelukast Sodium 10 MG TABLET PO (08:50)
[2022-06-02] MEDS: QUEtiapine Fumarate 200 MG TABLET PO (08:50)
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
[2022-06-02] MEDS: QUEtiapine Fumarate 50 MG TABLET PO (09:58)
[2022-06-02] MEDS: hydrOXYzine HCL 50 MG TABLET PO (16:25)
[2022-06-02] MEDS: QUEtiapine Fumarate 300 MG TABLET 600 MG PO (20:26)
[2022-06-03] MEDS: hydrOXYzine HCL 50 MG TABLET PO ×2 (02:30→14:17)
[2022-06-03] MEDS: Throat Lozenge, Medicated LOZENGE 1 LOZENGE MUCOUS MEM (02:30)
[2022-06-03] MEDS: Levothyroxine Sodium 25 MCG TABLET PO (05:55)
[2022-06-03] MEDS: Montelukast Sodium 10 MG TABLET PO (08:04)
[2022-06-03] MEDS: QUEtiapine Fumarate 200 MG TABLET PO (08:04)
[2022-06-03 08:06] VITALS: BP 117/72; PULSE 91; RESP 16; TEMP 35.9; O2SAT 100
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
[2022-06-03] MEDS: Nicotine Polacrilex 2 MG GUM 4 MG BUCCAL (18:38)
[2022-06-03 19:30] VITALS: BP 113/55; PULSE 104; TEMP 35.9
[2022-06-03] MEDS: QUEtiapine Fumarate 300 MG TABLET 600 MG PO (20:54)
[2022-06-04] MEDS: Levothyroxine Sodium 25 MCG TABLET PO (05:25)
[2022-06-04] MEDS: hydrOXYzine HCL 50 MG TABLET PO ×3 (05:28→21:21)
[2022-06-04] MEDS: Nicotine Polacrilex 2 MG GUM 4 MG BUCCAL ×5 (05:45→21:21)
[2022-06-04] MEDS: QUEtiapine Fumarate 200 MG TABLET PO (09:10)
[2022-06-04] MEDS: Montelukast Sodium 10 MG TABLET PO (09:10)
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
[2022-06-04 10:27] VITALS: BP 123/74; PULSE 121; RESP 18; TEMP 36.3; O2SAT 98
[2022-06-04 20:00] VITALS: BP 114/62; PULSE 106; TEMP 36.4
[2022-06-04] MEDS: QUEtiapine Fumarate 300 MG TABLET 600 MG PO (21:15)
[2022-06-05] MEDS: Levothyroxine Sodium 25 MCG TABLET PO (05:40)
[2022-06-05 09:10] VITALS: BP 124/83; PULSE 105; RESP 18; TEMP 36.7; O2SAT 96
[2022-06-05] MEDS: QUEtiapine Fumarate 200 MG TABLET PO (09:11)
[2022-06-05] MEDS: Montelukast Sodium 10 MG TABLET PO (09:11)
[2022-06-05] MEDS: Nicotine Polacrilex 2 MG GUM 4 MG BUCCAL ×2 (09:12→19:35)
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
[2022-06-05] MEDS: hydrOXYzine HCL 50 MG TABLET PO (13:17)
[2022-06-05] MEDS: QUEtiapine Fumarate 300 MG TABLET 600 MG PO (19:28)
[2022-06-05] MEDS: Divalproex Sodium ER 500 MG TAB.ER.24H 1000 MG PO (19:28)
[2022-06-05] MEDS: OLANZapine ODT 10 MG TAB.RAPDIS TRANSLINGU (19:36)
[2022-06-06] MEDS: QUEtiapine Fumarate 50 MG TABLET PO (04:57)
[2022-06-06] MEDS: Levothyroxine Sodium 25 MCG TABLET PO (04:58)
[2022-06-06 06:00] VITALS: RESP 14
[2022-06-06] MEDS: Nicotine Polacrilex 2 MG GUM 4 MG BUCCAL ×4 (06:29→15:49)
[2022-06-06] MEDS: QUEtiapine Fumarate 200 MG TABLET PO (09:39)
[2022-06-06] MEDS: Montelukast Sodium 10 MG TABLET PO (09:39)
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
[2022-06-06 18:00] VITALS: BP 128/67; PULSE 68; RESP 16; TEMP 36.6; O2SAT 97
[2022-06-06] MEDS: QUEtiapine Fumarate 300 MG TABLET 600 MG PO ×2 (20:54→21:11)
[2022-06-06] MEDS: LORazepam 1 MG TABLET 2 MG PO ×2 (20:55→21:11)
[2022-06-06] MEDS: Divalproex Sodium ER 500 MG TAB.ER.24H 1000 MG PO (21:11)
[2022-06-06] MEDS: OLANZapine 10 MG VIAL IM (21:22)
--- NOTE | 2022-06-06 21:54 | PC.NURSE ---
Pt refused bedtime depakote, 10mg zyprexa IM given per court order. Pt tolerated medication well.
[2022-06-07] MEDS: Levothyroxine Sodium 25 MCG TABLET PO (05:20)
[2022-06-07] MEDS: hydrOXYzine HCL 50 MG TABLET PO ×2 (05:23→20:34)
--- NOTE | 2022-06-07 05:26 | PC.NURSE ---
Patient compliant with levothyroxine this morning. Asks for seroquel or the yellow pill. States he has high anxiety but is hiding it well. No outward signs of agitation or anxiety. Atarax (yellow pill) administered as prescribed.
[2022-06-07] MEDS: Nicotine Polacrilex 2 MG GUM 4 MG BUCCAL ×4 (05:32→20:34)
[2022-06-07] MEDS: QUEtiapine Fumarate 200 MG TABLET PO (08:15)
[2022-06-07] MEDS: Montelukast Sodium 10 MG TABLET PO (08:15)
[2022-06-07 08:49] VITALS: BP 122/73; PULSE 99; RESP 18; TEMP 36.6; O2SAT 97
[2022-06-07 15:50] VITALS: BP 87/59; PULSE 98; TEMP 36.2
[2022-06-07] MEDS: LORazepam 1 MG TABLET 2 MG PO (20:34)
[2022-06-07] MEDS: Divalproex Sodium ER 500 MG TAB.ER.24H 1000 MG PO (20:36)
[2022-06-07] MEDS: QUEtiapine Fumarate 300 MG TABLET 600 MG PO (20:36)
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
--- NOTE | 2022-06-08 00:08 | PC.NURSE ---
Pt's mother, Yulia, called during shift after pt had made calls to her saying he was to be discharged tonight at 1830. Pt's mother was reassured pt was not leaving tonight. Pt's mother also expressed that she and her feel in the dark about pt's plan of care during his stay and about discharge planning for him, particularly as pt will likely return home with her and her and her . Pt's mother was hoping to set up a family meeting with providers about this. Yulia Still can be reached at .
[2022-06-08] MEDS: Levothyroxine Sodium 25 MCG TABLET PO (05:23)
[2022-06-08] MEDS: Nicotine Polacrilex 2 MG GUM 4 MG BUCCAL ×5 (06:31→22:43)
[2022-06-08] MEDS: hydrOXYzine HCL 50 MG TABLET PO ×3 (06:31→18:58)
[2022-06-08] MEDS: QUEtiapine Fumarate 200 MG TABLET PO (08:19)
[2022-06-08] MEDS: Montelukast Sodium 10 MG TABLET PO (08:19)
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
[2022-06-08 09:38] VITALS: BP 133/74; PULSE 100; RESP 18; TEMP 36.1; O2SAT 97
[2022-06-08] MEDS: QUEtiapine Fumarate 50 MG TABLET PO (12:36)
[2022-06-08] MEDS: Throat Lozenge, Medicated LOZENGE 1 LOZENGE MUCOUS MEM ×2 (15:55→19:45)
[2022-06-08] MEDS: Divalproex Sodium ER 500 MG TAB.ER.24H 1000 MG PO (22:36)
[2022-06-08] MEDS: QUEtiapine Fumarate 300 MG TABLET 600 MG PO (22:36)
[2022-06-08] MEDS: LORazepam 1 MG TABLET 2 MG PO (22:37)
[2022-06-09] MEDS: Levothyroxine Sodium 25 MCG TABLET PO (06:44)
[2022-06-09] MEDS: Montelukast Sodium 10 MG TABLET PO (07:56)
[2022-06-09] MEDS: QUEtiapine Fumarate 200 MG TABLET PO (07:56)
[2022-06-09 07:57] VITALS: BP 116/67; PULSE 103; RESP 16; TEMP 36.1; O2SAT 98
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
[2022-06-09] MEDS: Nicotine Polacrilex 2 MG GUM 4 MG BUCCAL ×3 (10:18→19:59)
[2022-06-09] MEDS: hydrOXYzine HCL 50 MG TABLET PO ×2 (10:18→15:53)
[2022-06-09] MEDS: QUEtiapine Fumarate 300 MG TABLET 600 MG PO (19:59)
[2022-06-09] MEDS: Divalproex Sodium ER 500 MG TAB.ER.24H 1000 MG PO (19:59)
[2022-06-09] MEDS: LORazepam 1 MG TABLET 2 MG PO (19:59)
[2022-06-10] MEDS: Levothyroxine Sodium 25 MCG TABLET PO (05:58)
[2022-06-10] MEDS: Montelukast Sodium 10 MG TABLET PO (07:54)
[2022-06-10] MEDS: QUEtiapine Fumarate 200 MG TABLET PO (07:54)
[2022-06-10 07:57] VITALS: BP 148/86; PULSE 101; RESP 16; TEMP 35.5; O2SAT 97
[2022-06-10] MEDS: hydrOXYzine HCL 50 MG TABLET PO ×2 (08:24→21:05)
[2022-06-10] MEDS: Nicotine Polacrilex 2 MG GUM 4 MG BUCCAL ×2 (09:55→13:34)
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
[2022-06-10] MEDS: LORazepam 0.5 MG TABLET PO (11:05)
[2022-06-10 18:00] VITALS: BP 127/75; PULSE 100; RESP 20; TEMP 536.2; TEMP 997.2; O2SAT 98
[2022-06-10] MEDS: QUEtiapine Fumarate 300 MG TABLET 600 MG PO (21:05)
[2022-06-10] MEDS: Divalproex Sodium ER 500 MG TAB.ER.24H 1000 MG PO (21:05)
[2022-06-10] MEDS: LORazepam 1 MG TABLET 2 MG PO (21:05)
[2022-06-11] MEDS: hydrOXYzine HCL 50 MG TABLET PO ×2 (03:40→10:01)
[2022-06-11] MEDS: Nicotine Polacrilex 2 MG GUM 4 MG BUCCAL ×3 (03:40→15:06)
[2022-06-11] MEDS: LORazepam 0.5 MG TABLET PO (08:27)
[2022-06-11] MEDS: Montelukast Sodium 10 MG TABLET PO (08:27)
[2022-06-11] MEDS: Levothyroxine Sodium 25 MCG TABLET PO (08:27)
[2022-06-11 08:31] VITALS: BP 122/78; PULSE 102; RESP 16; TEMP 36.6; O2SAT 100
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
[2022-06-11] MEDS: QUEtiapine Fumarate 50 MG TABLET PO (12:01)
[2022-06-11 12:56] LABS: Alanine Aminotransferase 54 U/L (0-40); Albumin Level 4.4 g/dL (3.5-5.0); Alkaline Phosphatase 54 U/L (39-117); Aspartate Amino Transferase 50 U/L (5-37); Bilirubin Direct 0.1 mg/dL (0.0-0.5); Bilirubin Total 0.3 mg/dL (0.0-1.0); Total Protein 7.1 g/dL (6.5-8.0)
[2022-06-11 13:11] LABS: HIV AB/AG Nonreactive (Nonreactive); HIV Num 1 0.27 S/CO (0.00-0.99); TSH reflex Free T4 2.06 uIU/mL (0.32-4.0)
[2022-06-11 13:12] LABS: Syphilis Screen Nonreactive (Nonreactive)
[2022-06-11 15:16] LABS: CT PCR NOT DETECTED (Not Detect.); NG PCR NOT DETECTED (Not Detect.)
[2022-06-11 18:00] VITALS: BP 147/69; PULSE 88; RESP 18; TEMP 36.8; O2SAT 99
[2022-06-11] MEDS: QUEtiapine Fumarate 300 MG TABLET 600 MG PO (20:12)
[2022-06-11] MEDS: Divalproex Sodium ER 500 MG TAB.ER.24H 1000 MG PO (20:12)
[2022-06-11] MEDS: LORazepam 1 MG TABLET PO (20:13)
--- NOTE | 2022-06-11 21:12 | PC.NURSE ---
Pt's mother called this evening and spoke with TW. She expressed concern that Dr. Loza had told her today that he was intending to start patient on Lemay. When I viewed the MAR, it was noted that the medication was scheduled to start this evening. She expressed that even without Lemay she had noticed that Still seemed clearer this evening when she visited earlier.
[2022-06-12] MEDS: Levothyroxine Sodium 25 MCG TABLET PO (04:38)
[2022-06-12] MEDS: Nicotine Polacrilex 2 MG GUM 4 MG BUCCAL ×3 (04:38→21:46)
[2022-06-12 08:19] VITALS: BP 130/76; PULSE 78; RESP 16; TEMP 36.2; O2SAT 99
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
[2022-06-12] MEDS: Lithium Carbonate ER 300 MG TABLET.ER PO ×2 (11:48→21:04)
--- NOTE | 2022-06-12 11:49 | PC.NURSE ---
attempted to administer once lithium dose. pt threw med and cup of water. pt accepted med from different nurse.
[2022-06-12 16:50] VITALS: BP 109/71; PULSE 94; TEMP 36.2
[2022-06-12] MEDS: LORazepam 1 MG TABLET PO (21:03)
[2022-06-12] MEDS: QUEtiapine Fumarate 300 MG TABLET 600 MG PO (21:03)
[2022-06-12] MEDS: Divalproex Sodium ER 500 MG TAB.ER.24H 1000 MG PO (21:04)
[2022-06-12] MEDS: hydrOXYzine HCL 50 MG TABLET PO (22:57)
[2022-06-13] MEDS: Levothyroxine Sodium 25 MCG TABLET PO (05:30)
[2022-06-13 09:13] VITALS: BP 127/89; PULSE 90; RESP 16; TEMP 36.7; O2SAT 98
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
[2022-06-13] MEDS: Divalproex Sodium ER 500 MG TAB.ER.24H 1000 MG PO (20:27)
[2022-06-13] MEDS: LORazepam 1 MG TABLET PO (20:27)
[2022-06-13] MEDS: QUEtiapine Fumarate 300 MG TABLET 600 MG PO (20:27)
[2022-06-13] MEDS: Lithium Carbonate ER 300 MG TABLET.ER 600 MG PO (20:28)
[2022-06-13] MEDS: Nicotine Polacrilex 2 MG GUM 4 MG BUCCAL (20:31)
[2022-06-14] MEDS: Levothyroxine Sodium 25 MCG TABLET PO (06:48)
[2022-06-14] MEDS: Nicotine Polacrilex 2 MG GUM 4 MG BUCCAL ×2 (07:52→11:38)
[2022-06-14] MEDS: hydrOXYzine HCL 50 MG TABLET PO (07:52)
[2022-06-14 08:37] VITALS: BP 145/70; PULSE 85; RESP 16; TEMP 36.5; O2SAT 98
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
[2022-06-14] MEDS: LORazepam 0.5 MG TABLET PO (10:41)
[2022-06-14 18:46] VITALS: BP 128/78; PULSE 88; RESP 16; TEMP 36.6; O2SAT 99
[2022-06-14] MEDS: QUEtiapine Fumarate 400 MG TABLET 800 MG PO (20:26)
[2022-06-14] MEDS: Divalproex Sodium ER 500 MG TAB.ER.24H 1000 MG PO (20:27)
[2022-06-14] MEDS: Lithium Carbonate ER 300 MG TABLET.ER 600 MG PO (20:27)
[2022-06-14] MEDS: LORazepam 1 MG TABLET PO (20:28)
[2022-06-15] MEDS: hydrOXYzine HCL 50 MG TABLET PO ×2 (08:08→22:13)
[2022-06-15] MEDS: Levothyroxine Sodium 25 MCG TABLET PO (08:08)
[2022-06-15 08:11] VITALS: BP 131/83; PULSE 76; RESP 16; TEMP 36.1; O2SAT 100
[2022-06-15] MEDS: Nicotine Polacrilex 2 MG GUM 4 MG BUCCAL ×3 (09:29→17:31)
[2022-06-15] MEDS: LORazepam 0.5 MG TABLET PO ×2 (09:30→17:29)
--- NOTE | 2022-06-15 10:22 | PC.NURSE ---
Pt stated that he put an orange in the toilet and proceeded to have a bowel movement on top of it. Toilet was plunged and no fruit found. Pt bathroom was locked.
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
[2022-06-15] MEDS: OLANZapine 5 MG TABLET PO (17:33)
[2022-06-15 18:00] VITALS: BP 134/99; PULSE 113; RESP 18; TEMP 36.6; O2SAT 98
[2022-06-15] MEDS: QUEtiapine Fumarate 400 MG TABLET 800 MG PO (22:12)
[2022-06-15] MEDS: Lithium Carbonate ER 300 MG TABLET.ER 600 MG PO (22:12)
[2022-06-15] MEDS: Divalproex Sodium ER 500 MG TAB.ER.24H 1000 MG PO (22:12)
[2022-06-15] MEDS: LORazepam 1 MG TABLET PO (22:12)
[2022-06-16] MEDS: Levothyroxine Sodium 25 MCG TABLET PO (06:24)
[2022-06-16 08:27] VITALS: BP 127/81; PULSE 105; RESP 18; TEMP 36.1; O2SAT 98
[2022-06-16] MEDS: LORazepam 0.5 MG TABLET PO (09:40)
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
[2022-06-16] MEDS: hydrOXYzine HCL 50 MG TABLET PO (11:54)
[2022-06-16] MEDS: Nicotine Polacrilex 2 MG GUM 4 MG BUCCAL ×2 (11:54→16:57)
[2022-06-16 18:00] VITALS: BP 156/94; PULSE 107; TEMP 36.8; O2SAT 95
[2022-06-16] MEDS: Throat Lozenge, Medicated LOZENGE 1 LOZENGE MUCOUS MEM (18:39)
[2022-06-16] MEDS: OLANZapine 5 MG TABLET PO (18:41)
[2022-06-16] MEDS: LORazepam 1 MG TABLET PO (22:23)
[2022-06-16] MEDS: Divalproex Sodium ER 500 MG TAB.ER.24H 1000 MG PO (22:23)
[2022-06-16] MEDS: Lithium Carbonate ER 300 MG TABLET.ER 600 MG PO (22:24)
[2022-06-16] MEDS: QUEtiapine Fumarate 400 MG TABLET 800 MG PO (22:24)
[2022-06-17] MEDS: Levothyroxine Sodium 25 MCG TABLET PO (06:11)
[2022-06-17 08:37] VITALS: BP 142/90; PULSE 78; RESP 16; TEMP 36.7; O2SAT 100
[2022-06-17] MEDS: Nicotine Polacrilex 2 MG GUM 4 MG BUCCAL ×4 (09:29→19:27)
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
[2022-06-17 11:13] LABS: Lithium 0.87 mmol/L (0.60-1.20)
[2022-06-17 12:20] LABS: Blood Urea Nitrogen 12 mg/dL (9-16); Creatinine Clr Calc Pharmacy 107.2; Estimated Glomerular Filt Rate > 60
[2022-06-17 13:21] LABS: Free T4 (Free Thyroxine) 1.07 ng/dL (0.71-1.85)
[2022-06-17] MEDS: LORazepam 0.5 MG TABLET PO (15:01)
[2022-06-17 16:10] VITALS: BP 114/68; PULSE 105; TEMP 35.8
[2022-06-17] MEDS: Divalproex Sodium ER 500 MG TAB.ER.24H 1000 MG PO (19:27)
[2022-06-17] MEDS: Lithium Carbonate ER 300 MG TABLET.ER 600 MG PO (19:28)
[2022-06-17] MEDS: LORazepam 1 MG TABLET PO (19:28)
[2022-06-17] MEDS: QUEtiapine Fumarate 400 MG TABLET 800 MG PO (19:28)
[2022-06-18] MEDS: Levothyroxine Sodium 25 MCG TABLET PO (06:08)
[2022-06-18] MEDS: LORazepam 0.5 MG TABLET PO ×2 (08:09→14:14)
[2022-06-18 08:30] VITALS: BP 111/69; PULSE 100; RESP 16; TEMP 36.1; O2SAT 96
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
[2022-06-18] MEDS: HaloperidoL 5 MG TABLET PO ×2 (10:56→20:44)
[2022-06-18] MEDS: Nicotine Polacrilex 2 MG GUM 4 MG BUCCAL ×2 (10:56→14:15)
[2022-06-18 19:09] VITALS: BP 124/83; PULSE 90; RESP 18; TEMP 36.1; O2SAT 98
[2022-06-18] MEDS: Divalproex Sodium ER 500 MG TAB.ER.24H 1000 MG PO (20:44)
[2022-06-18] MEDS: QUEtiapine Fumarate 400 MG TABLET 800 MG PO (20:44)
[2022-06-18] MEDS: Lithium Carbonate ER 300 MG TABLET.ER 600 MG PO (20:45)
[2022-06-18] MEDS: LORazepam 1 MG TABLET PO (20:47)
[2022-06-19] MEDS: Throat Lozenge, Medicated LOZENGE 1 LOZENGE MUCOUS MEM ×2 (03:58→11:14)
[2022-06-19] MEDS: Levothyroxine Sodium 25 MCG TABLET PO (06:13)
[2022-06-19] MEDS: Nicotine Polacrilex 2 MG GUM 4 MG BUCCAL ×2 (06:58→13:49)
[2022-06-19] MEDS: hydrOXYzine HCL 50 MG TABLET PO (06:58)
[2022-06-19] MEDS: HaloperidoL 5 MG TABLET PO ×2 (08:13→21:08)
[2022-06-19 08:20] VITALS: BP 126/91; PULSE 81; RESP 18; TEMP 36.2; O2SAT 99
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
[2022-06-19 12:38] VITALS: BMI 33.1
[2022-06-19 16:49] VITALS: BP 113/62; PULSE 89; RESP 18; TEMP 36.1; O2SAT 100
[2022-06-19] MEDS: Divalproex Sodium ER 500 MG TAB.ER.24H 1000 MG PO (21:07)
[2022-06-19] MEDS: QUEtiapine Fumarate 400 MG TABLET 800 MG PO (21:08)
[2022-06-19] MEDS: Lithium Carbonate ER 300 MG TABLET.ER 600 MG PO (21:08)
[2022-06-19] MEDS: LORazepam 1 MG TABLET PO (21:08)
[2022-06-20 06:00] VITALS: BP 126/70; PULSE 92; RESP 16; TEMP 36.6; O2SAT 100
[2022-06-20] MEDS: Levothyroxine Sodium 25 MCG TABLET PO (06:26)
[2022-06-20] MEDS: Throat Lozenge, Medicated LOZENGE 1 LOZENGE MUCOUS MEM (06:27)
[2022-06-20] MEDS: HaloperidoL 5 MG TABLET PO ×2 (10:15→17:57)
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
[2022-06-20] MEDS: QUEtiapine Fumarate 400 MG TABLET 800 MG PO (17:56)
[2022-06-20] MEDS: Divalproex Sodium ER 500 MG TAB.ER.24H 1000 MG PO (17:57)
[2022-06-20] MEDS: Lithium Carbonate ER 300 MG TABLET.ER 600 MG PO (17:57)
[2022-06-20] MEDS: LORazepam 1 MG TABLET PO (17:57)
[2022-06-20 18:00] VITALS: BP 128/68; PULSE 78; RESP 16; TEMP 36.4; O2SAT 98
[2022-06-21] MEDS: Levothyroxine Sodium 25 MCG TABLET PO (05:57)
[2022-06-21] MEDS: Nicotine Polacrilex 2 MG GUM 4 MG BUCCAL ×3 (05:59→20:00)
[2022-06-21] MEDS: HaloperidoL 5 MG TABLET PO ×2 (08:14→22:04)
[2022-06-21 08:17] VITALS: BP 126/65; PULSE 78; RESP 18; TEMP 36.3; O2SAT 99
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
[2022-06-21] MEDS: Throat Lozenge, Medicated LOZENGE 1 LOZENGE MUCOUS MEM (19:59)
[2022-06-21 20:00] VITALS: BP 116/65; PULSE 98; TEMP 36.6
[2022-06-21] MEDS: Lithium Carbonate ER 300 MG TABLET.ER 600 MG PO (22:03)
[2022-06-21] MEDS: Divalproex Sodium ER 500 MG TAB.ER.24H 1000 MG PO (22:03)
[2022-06-21] MEDS: QUEtiapine Fumarate 400 MG TABLET 800 MG PO (22:04)
[2022-06-21] MEDS: LORazepam 1 MG TABLET PO (22:04)
[2022-06-22] MEDS: Levothyroxine Sodium 25 MCG TABLET PO (06:20)
[2022-06-22 08:28] VITALS: BP 107/67; PULSE 88; RESP 16; TEMP 36.8; O2SAT 99
[2022-06-22] MEDS: HaloperidoL 5 MG TABLET PO ×2 (08:30→22:06)
[2022-06-22] MEDS: hydrOXYzine HCL 50 MG TABLET PO (08:35)
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
[2022-06-22 18:05] VITALS: BP 105/57; PULSE 103; TEMP 36.2
[2022-06-22] MEDS: Divalproex Sodium ER 500 MG TAB.ER.24H 1000 MG PO (22:07)
[2022-06-22] MEDS: QUEtiapine Fumarate 400 MG TABLET 800 MG PO (22:07)
[2022-06-22] MEDS: LORazepam 1 MG TABLET PO (22:08)
[2022-06-22] MEDS: Lithium Carbonate ER 300 MG TABLET.ER 600 MG PO (22:08)
[2022-06-23] MEDS: Levothyroxine Sodium 25 MCG TABLET PO (05:58)
[2022-06-23 06:00] VITALS: BP 112/61; PULSE 76; RESP 18; TEMP 36.2; O2SAT 97
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
[2022-06-23] MEDS: HaloperidoL 5 MG TABLET PO ×2 (11:33→20:49)
[2022-06-23 18:00] VITALS: BP 111/63; PULSE 83; TEMP 36.2
[2022-06-23] MEDS: Nicotine Polacrilex 2 MG GUM 4 MG BUCCAL (18:15)
[2022-06-23] MEDS: hydrOXYzine HCL 50 MG TABLET PO (18:16)
[2022-06-23] MEDS: QUEtiapine Fumarate 400 MG TABLET 800 MG PO (20:48)
[2022-06-23] MEDS: Divalproex Sodium ER 250 MG TAB.ER.24H 750 MG PO (20:49)
[2022-06-23] MEDS: LORazepam 1 MG TABLET PO (20:49)
[2022-06-23] MEDS: Lithium Carbonate ER 300 MG TABLET.ER 600 MG PO (20:50)
[2022-06-24] MEDS: Levothyroxine Sodium 25 MCG TABLET PO (06:34)
[2022-06-24 08:47] VITALS: BP 118/77; PULSE 90; RESP 18; TEMP 36.6; O2SAT 97
[2022-06-24] MEDS: HaloperidoL 5 MG TABLET PO ×2 (08:49→21:08)
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
[2022-06-24] MEDS: Nicotine Polacrilex 2 MG GUM 4 MG BUCCAL (14:22)
[2022-06-24 18:00] VITALS: BP 114/84; PULSE 84; RESP 18; TEMP 36.4; O2SAT 99
[2022-06-24] MEDS: Lithium Carbonate ER 300 MG TABLET.ER 600 MG PO (21:08)
[2022-06-24] MEDS: QUEtiapine Fumarate 400 MG TABLET 800 MG PO (21:09)
[2022-06-24] MEDS: Divalproex Sodium ER 500 MG TAB.ER.24H PO (21:09)
[2022-06-24] MEDS: hydrOXYzine HCL 50 MG TABLET PO (21:09)
[2022-06-24] MEDS: LORazepam 1 MG TABLET PO (21:09)
[2022-06-25] MEDS: Levothyroxine Sodium 25 MCG TABLET PO (06:13)
[2022-06-25] MEDS: HaloperidoL 5 MG TABLET PO ×2 (09:30→21:35)
[2022-06-25 09:38] VITALS: BP 112/64; PULSE 90; RESP 16; TEMP 36.4; O2SAT 98
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
[2022-06-25 21:00] VITALS: BP 106/58; PULSE 94; TEMP 37
[2022-06-25] MEDS: QUEtiapine Fumarate 400 MG TABLET 800 MG PO (21:34)
[2022-06-25] MEDS: Divalproex Sodium ER 500 MG TAB.ER.24H PO (21:35)
[2022-06-25] MEDS: Lithium Carbonate ER 300 MG TABLET.ER 600 MG PO (21:35)
[2022-06-26 06:00] VITALS: BP 114/73; PULSE 97; RESP 16; TEMP 36.6; O2SAT 98
[2022-06-26] MEDS: Levothyroxine Sodium 25 MCG TABLET PO (06:24)
[2022-06-26 07:00] VITALS: BMI 34.2
[2022-06-26] MEDS: HaloperidoL 5 MG TABLET PO ×2 (08:23→20:38)
[2022-06-26] MEDS: Nicotine Polacrilex 2 MG GUM 4 MG BUCCAL (09:22)
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
[2022-06-26 18:00] VITALS: BP 107/57; PULSE 101; TEMP 36.5
[2022-06-26] MEDS: Lithium Carbonate ER 300 MG TABLET.ER 600 MG PO (20:37)
[2022-06-26] MEDS: Divalproex Sodium ER 500 MG TAB.ER.24H PO (20:37)
[2022-06-26] MEDS: QUEtiapine Fumarate 400 MG TABLET 800 MG PO (20:37)
[2022-06-27] MEDS: Levothyroxine Sodium 25 MCG TABLET PO (06:01)
[2022-06-27] MEDS: HaloperidoL 5 MG TABLET PO ×2 (08:48→20:42)
[2022-06-27 08:55] VITALS: BP 128/73; PULSE 90; RESP 16; TEMP 36.7; O2SAT 99
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
[2022-06-27] MEDS: Nicotine Polacrilex 2 MG GUM 4 MG BUCCAL ×2 (12:01→18:01)
[2022-06-27] MEDS: Lithium Carbonate ER 300 MG TABLET.ER 600 MG PO (18:01)
[2022-06-27] MEDS: hydrOXYzine HCL 50 MG TABLET PO (18:05)
[2022-06-27 19:55] VITALS: BP 117/67; PULSE 101; TEMP 36.3
[2022-06-27] MEDS: QUEtiapine Fumarate 400 MG TABLET 800 MG PO (20:42)
[2022-06-28] MEDS: Levothyroxine Sodium 25 MCG TABLET PO (08:38)
[2022-06-28] MEDS: HaloperidoL 5 MG TABLET PO ×2 (08:38→20:55)
[2022-06-28 08:46] VITALS: BP 132/93; PULSE 88; RESP 18; TEMP 36.3; O2SAT 99
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
[2022-06-28] MEDS: Nicotine Polacrilex 2 MG GUM 4 MG BUCCAL (09:50)
[2022-06-28] MEDS: Lithium Carbonate ER 300 MG TABLET.ER 600 MG PO (17:57)
[2022-06-28 18:00] VITALS: BP 106/62; PULSE 86; RESP 16; TEMP 37.3; O2SAT 98
[2022-06-28] MEDS: hydrOXYzine HCL 50 MG TABLET PO (20:55)
[2022-06-28] MEDS: QUEtiapine Fumarate 400 MG TABLET 800 MG PO (20:55)
[2022-06-29] MEDS: Levothyroxine Sodium 25 MCG TABLET PO (06:15)
[2022-06-29] MEDS: HaloperidoL 5 MG TABLET PO ×2 (08:55→20:08)
[2022-06-29 09:11] VITALS: BP 118/67; PULSE 99; RESP 20; TEMP 36.4; O2SAT 98
[2022-06-29 18:00] VITALS: BP 129/61; PULSE 97; RESP 18; TEMP 36.4; O2SAT 99
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
[2022-06-29] MEDS: Lithium Carbonate ER 300 MG TABLET.ER 600 MG PO (19:00)
[2022-06-29] MEDS: hydrOXYzine HCL 50 MG TABLET PO (20:08)
[2022-06-29] MEDS: QUEtiapine Fumarate 400 MG TABLET 800 MG PO (20:08)
[2022-06-30] MEDS: Levothyroxine Sodium 25 MCG TABLET PO (06:02)
[2022-06-30 08:20] VITALS: BP 129/89; PULSE 84; RESP 16; TEMP 36.5; O2SAT 99
[2022-06-30] MEDS: HaloperidoL 5 MG TABLET PO ×2 (09:05→20:48)
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
[2022-06-30] MEDS: Nicotine Polacrilex 2 MG GUM 4 MG BUCCAL (11:12)
--- NOTE | 2022-06-30 13:30 | P.DS_ITS ---
DS: Providers Provider Date of Service: 07/01/22 Date of admission: 05/15/22 19:27 Date of discharge: 07/01/22 Primary care physician: Unknown Physician DS: Diagnosis Discharge Diagnosis (1) Bipolar disorder: Status: Acute DS: Medications Discharge Medications Home Medications: Previous Rx's Medication Instructions Recorded albuterol sulfate 90 mcg/actuation 2 puff inhalation RQ4H PRN 06/30/22 aerosol inhaler (Ventolin HFA) Shortness Of Breath 30 days #6.7 grams haloperidol 5 mg tablet 5 mg PO BID 30 days #60 tabs 06/30/22 hydroxyzine HCl 50 mg tablet 50 mg PO Q6H PRN Anxiety 30 days 06/30/22 #90 tabs levothyroxine 25 mcg tablet 25 mcg PO QAM 30 days #30 tabs 06/30/22 lithium carbonate 600 mg capsule 600 mg PO BEDTIME 30 days #30 caps 06/30/22 montelukast 10 mg tablet 10 mg PO DAILY 30 days #30 tabs 06/30/22 nicotine (polacrilex) 4 mg gum 4 mg buccal Q2H 30 days #100 ea 06/30/22 (Quit) quetiapine 400 mg tablet 800 mg PO BEDTIME 30 days #60 tabs 06/30/22 Mental Status Exam Mental Status Exam Narrative: Pt is alert and oriented; behavior is more calm, friendly, cooperative; Patient is not in distress; dressed in casual attire; lip ring; mood is good affect is calm; eye contact appropriate; speech regular rate, prosody and volume; no psy chomotor agitation/retardation; thought process goal oriented and organized; Thought content is on hx of his illness, discharge; reflecting on situation leading to this admission; diagnosis; denies any SI/HI. Does not appear to be internally preoccupied; Patients insight and judgment are fair and adequate DS: Summary Hospital Course Hospital Course: Patient is a 26-year-old, on Section 12 b, history of bipolar disorder, hallucinogenic drug abuse, who presents in the midst of manic episode in face of non medication adherence.? Patient was eventually involuntarily committed on a Section 8b Hospital course: On admission, Patient very disorganized, making odd movements in the milieu, intrusive, whispering to fiction and nonfiction writer prose, to himself, talking out loud to himself and answering questions posed by .? Patient had limited ability to participate in interview.? He asked for piece of paper and wrote that he is the Buddah and a witch...? He refers to several pops star singers and his interaction with them...? Patient said something about the popular book/movie [employer] games and asked if the psychiatric unit was an arena. ? In the community, his family reported patient had increased paranoid delusions saying that terrorists are trying to hurt him and afraid of people; complains of auditory hallucinations and talking about being a participant in the [employer]. Patient remained floridly manic, not sleeping, intrusive, at times making physical threats to staff and peers; patient needed medical, physical restraint x2 and for 7 the time required being on a one-to-one. Patient intermittently was willing take medications; Zyprexa started but not effective. Patient was involuntarily committed. He was started on Seroquel and Depakote and though Depakote reached therapeutic level and some of his theresa subsided, he remained hypomanic, not sleeping delusional and provocative. Patient was then started on lithium and on this combination he finally started sleeping through the night. Manic symptoms mostly resolved however he remained with paranoid delusions, some disorganized behavior and internally preoccupied. However once patient was started on Haldol remains psychotic symptoms resolved. Patient started becoming much more organized in both speech and behavior with improved insight and judgment. He was sleeping through the night and starting to except that he likely has bipolar disorder and needs medication. Depakote was discontinued and patient demonstrated he was able to remain stable without it. Patient's manic and psychotic symptoms fully resolved and he returned to his regular self. Patient was relieved and grateful for stabilization; diagnosis was discussed and patient accepted that he needs medications. Teacher Vocal discussed medication management during the admission but also again on the jaida of discharge once patient was fully stabilized, and thoroughly reviewed the risks/side effects of his regimen. Teacher Vocal also explained that if patient remained stable for several months, that with his outpatient provider it may be possible to try and decrease the dose of 1 of the antipsychotics to which patient understood and agreed to discuss further with outpatient provider. Patient remained in good mood, appropriate with peers and staff, engaged in treatment and continually demonstrating good behavioral and impulse control throughout the rest of his stay on the unit. Patient plans were to return home to live with his supportive parents who visited frequently. Patient was optimistic about staying stable and was appropriate to return to the community for care.? He is not in imminent risk for harm to self or others and request for discharge honored. Time spent discussing smoking cessation with patient: 3 to 10 minutes Status at Discharge Functional status at discharge: independent ambulation Overall status at discharge: patient is back to baseline Time Spent with Patient Time attestation: Total time managing care of this patient today ____ minutes. Time spent: Greater than 30 minutes Discharge Plan Discharge Anticipated Discharge Date/Time: 07/01/22 11:30 Patient Disposition: Home, Self-Care Discharge Diagnosis: Bipolar disorder, recurrent, severe with psychotic symptoms in full remission Referrals: L[facility] Valdivia Psychiatry/Medication Provider [Other] - 07/03/22 12:00 pm (Home office, so office entrance around the back, through the wooden gate and into the unlocked sun room / waiting room.) [facility] [Other] - 07/07/22 6:00 pm (Telehealth) [facility] [Other] - 1 Week (I filled out an online application and they should be getting in touch with you. If you have not heard from them in a week, get in touch with them at the above phone number. ) [facility] [employer] [Other] - 1 Week (I have printed out some information on PT 1 transportation. Once you have [employer] you will be able to use this form of transportation. The hand out gives detailed instructions. ) Case Management Clinical and Support Options ([employer]) [Other] - 1 Week ([employer] will be a good option to get connected with case management. Once you get [employer] you can reach out to them and inquire about case management services. ) [facility] [Other] - 07/02/22 4:30 pm (We have made you an appointment for tomorrow (07/02/22) at 430 pm at the [place] office with Abdulaziz Alonzo MD. If you can not make this appointment please call the office at [phone].) Discharge Medications: New albuterol sulfate [Ventolin HFA] 90 mcg/actuation Hfa Aerosol Inhaler 2 puff inhalation RQ4H PRN (Reason: Shortness Of Breath) 30 Days Qty: 6.7 1RF nicotine (polacrilex) [Quit 4] 4 mg gum 4 mg buccal Q2H 30 Days Qty: 100 0RF haloperidol 5 mg Tablet 5 mg PO BID 30 Days Qty: 60 1RF hydroxyzine HCl 50 mg Tablet 50 mg PO Q6H PRN (Reason: Anxiety) 30 Days Qty: 90 1RF lithium carbonate 600 mg capsule 600 mg PO BEDTIME 30 Days Qty: 30 1RF quetiapine 400 mg Tablet 800 mg PO BEDTIME 30 Days Qty: 60 1RF Continued levothyroxine 25 mcg tablet 25 mcg PO QAM 30 Days Qty: 30 1RF montelukast 10 mg tablet 10 mg PO DAILY 30 Days Qty: 30 0RF Discharge Orders: Discharge Order (Routine); Ordered 07/01/22 Ordered By: German Loza Diet: Regular diet Activity on Discharge: As tolerated Stand Alone Forms: Patient Portal Discharge page, Community Support Care Plan Goals: Maintain mood and safe behaviors Take medications as prescribed Continue to pursue sobriety Practice coping skills Continue with outpatient providers and reach out to them as needed Health Concerns: Mood stability and behaviors Sobriety Asthma Plan of Treatment: Follow up with your PCP, psychiatric provider and other outpatient providers regarding above concerns Take medications as prescribed: Levothryoxine 25mcg AM (2 hours before food/other meds) Haldol 5mg AM [place] 600mg at 6pm (Regarding [place]: Do not take NSAIDS/Ibuprofen; Stay hydrated) Haldol 5mg at bedtime Seroquel 800mg at bedtime Assessment: Risk assessment at time of discharge:? Patient was interviewed prior to discharge and found to be fully oriented and without any SI or HI. Patient has insight and demonstrates good judgment in terms of wanting to pursue treatment. Patient is not in imminent risk of harm to self or others and has a safety plan that includes presenting to the closest ER or calling 911 if feeling unsafe.? Patient has been observed closely by nursing and unit staff throughout admission; patient has not engaged in any behaviors that suggest dangerousness to self or others and has demonstrated appropriate behaviors and impulse control Discharge Date/Time: 07/01/22 11:39
[2022-06-30 17:15] VITALS: BP 119/62; PULSE 123; TEMP 36.4
[2022-06-30] MEDS: Lithium Carbonate ER 300 MG TABLET.ER 600 MG PO (18:17)
[2022-06-30] MEDS: QUEtiapine Fumarate 400 MG TABLET 800 MG PO (20:48)
[2022-07-01] MEDS: Levothyroxine Sodium 25 MCG TABLET PO (06:15)
[2022-07-01] MEDS: HaloperidoL 5 MG TABLET PO (08:27)
[2022-07-01] MEDS: Nicotine Polacrilex 2 MG GUM 4 MG BUCCAL (08:28)
[2022-07-01 08:30] VITALS: BP 115/58; PULSE 85; RESP 18; TEMP 36.3; O2SAT 99
== END 2022-07-01 11:39 | disposition home or self-care (01) | DRG 753 ==
LOC: HO.ED 13:34 → HO.PM5 19:30
PROVIDERS: Admitting Provider Psychiatry & Neurology Psychiatry; Emergency Provider Emergency Medicine; Visit Provider Psychiatry & Neurology Psychiatry
DX: F31.9 Bipolar disorder, unspecified (principal); Z78.1 Physical restraint status; Z20.822 Contact with and (suspected) exposure to COVID-19; Z79.890 Hormone replacement therapy; Z79.899 Other long term (current) drug therapy
CPT/HCPCS: 0353U; 36415; 80048; 80053; 80061; 80076; 80143; 80164; 80178; 80179; 80307; 81001; 82077; 82140; 82565; 84439; 84443; 84520; 85025; 86780; 87389; 87635; 92950; 99285; J2060; S9485